=== PATIENT | female | born 1975 | race Caucasian/White ===

== ENCOUNTER 2017-08-20 18:56 | Emergency (ER) | payer OTHER ==
--- NOTE | 2017-08-20 19:06 | EDPHY ---
H & P Time Seen by Provider: 08/20/17 19:06 Constitutional: Initial Vital Signs Temperature (C) 36.8 C 08/20/17 19:20 Heart Rate 68 08/20/17 19:20 Respiratory Rate 15 08/20/17 19:20 Blood Pressure 113/77 08/20/17 19:20 O2 Sat (%) 98 08/20/17 19:20 O2 Delivery Mode Room Air Allergies/Adverse Reactions: No Known Allergies Allergy (Unverified 08/20/17 19:40) Home Medications: Medication Instructions Recorded AZITHROMYCIN [Z-PACK] 250 mg PO DAILY #1 packet 08/20/17 predniSONE 40 mg PO DAILY #4 tab 08/20/17 Medical Decision Making ED Course/Re-evaluation: CHIEF COMPLAINT: Persistent upper respiratory infection symptoms. HISTORY OF PRESENT ILLNESS: This patient is a 42 year old female complaining of upper respiratory infection symptoms remaining after 17 days of illness. She visited urgent care last Thursday and was diagnosed with viral syndrome. She had a sore throat and cough for the first two weeks which are now largely resolved. Today, she feels remaining malaise. Her throat feels tight intermittently and she continues to have rhinorrhea and fatigue. She feels pressure and paresthesias in her face. When she leans forward, she feels a pressure sensation under her eyes and above her teeth. She complains of persistent shortness of breath. 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 She denies any chest pain or abdominal pain. She did not receive a flu shot this year, and denies being tested for flu at her urgent care visit last weekend. She denies fever, vomiting, diarrhea, urinary complaints, or other associated symptoms. REVIEW OF SYSTEMS: A 10 point review of systems was performed and is negative with the exception of the elements mentioned in the history of present illness. PHYSICAL EXAM: HR, BP, O2 Sat, RR. Temp noted General Appearance: Alert, well hydrated, appropriate, and non-toxic appearing. Head: Atraumatic without scalp tenderness or obvious injury Eyes: Pupils equal, round, reactive to light and accommodation, EOMI, no trauma , no injection. Ears: Clear bilaterally, no perforation, normal landmarks Nose: Atraumatic, no rhinorrhea, clear. Throat: There is no erythema or exudates, no lesions, normal tonsils, mucus membranes moist. Neck: Supple, 2+ carotid upstroke, nontender, no lymphadenopathy. Respiratory: End-expiratory wheezes with prolonged expiratory period. No retractions, no distress, and no accessory muscle use. Cardiovascular: Regular rate and rhythm, no murmurs, rubs, or gallops. Bilateral carotid, radial, dorsalis pedis, and posterior tibial pulses intact. Good capillary refill all extremities. Gastrointestinal: Abdomen is soft, nontender, non-distended, no masses, no rebound, no guarding, no peritoneal signs. Musculoskeletal: Normal active ROM of all extremities, atraumatic. Neurological: Alert, appropriate, and interactive. The patient has normal DTRs and non-focal cranial nerves, motor, sensory, and cerebellar exam. Skin: No rashes, good turgor, no nodules on palpation. Past medical history: Denies Past surgical history: [place] teeth extraction Family history: Noncontributory. 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 . at bedside. Lives in [place]. DIFFERENTIAL DIAGNOSIS: The differential diagnosis for the patient's shortness of breath and hypoxemia included but was not limited to pneumonia, myocardial infarction, acute mountain sickness, high altitude pulmonary edema, congestive heart failure, and pulmonary embolus. MEDICAL DECISION MAKIN42 year old female presents with shortness of breath, fatigue, sore throat, and facial pressure persisting following an upper respiratory infection. Exam reveals end-expiratory wheezes with prolonged expiratory period. Bronchoconstriction suggests post-infectious reactive airways disease. Plan to administer DuoNeb treatment. 19:40 Reassessed patient. She continued to note a tight breathing sensation following DuoNeb administration. Expiratory wheezes noted on repeat exam. Plan to administer 40mg PO Prednisone. Plan to discharge home in good condition with prescription for Azithromycin to treat possible sinusitis, Prednisone and Proventil for relief of post- infections reactive airways disease symptoms. Follow up and return precautions discussed. The patient is comfortable with this plan. - Data Points Medications Given: Discontinued Medications Albuterol Sulfate (Proventil Inh Prepack) 1 mdi TAKEHOME EDNOW ONE Stop: 08/20/17 19:40 Last Admin: 08/20/17 19:58 Dose: 1 mdi Albuterol/Ipratropium (Duoneb) 3 ml IH EDNOW ONE Stop: 08/20/17 19:17 Last Admin: 08/20/17 19:19 Dose: 3 ml Azithromycin (Zithromax) 500 mg PO EDNOW ONE PRN Reason: Protocol Stop: 08/20/17 19:40 Last Admin: 08/20/17 19:46 Dose: 500 mg Prednisone (Prednisone) 40 mg PO EDNOW ONE Stop: 08/20/17 19:40 Last Admin: 08/20/17 19:46 Dose: 40 mg Departure - Departure Disposition: Home, Routine, Self-Care Clinical Impression: Mild reactive airways disease Qualifiers: Asthma persistence: unspecified Qualified Code(s): J45.909 - Unspecified asthma , uncomplicated Sinusitis Qualifiers: Sinusitis location: maxillary Chronicity: unspecified Qualified Code(s): J32.0 - Chronic maxillary sinusitis Condition: Good Instructions: Sinusitis (ED), Reactive Airways Disease (ED) Additional Instructions: 1. Take Flonase one puff each nostril twice daily and Mucinex 1200 morning and night, as directed on the packaging for symptom relief. These are available over the counter. 2. Take Azithromycin as prescribed. It is important to finish your entire course of antibiotics even if you are feeling better. Take Prednisone as prescribed. Use your inhaler as prescribed as needed. 3. Follow up with your primary care provider for further evaluation. 4. Return to the emergency department for worsening shortness of breath, chest pain, fever, or other worsening of condition. Referrals: Simón Rose MD [Medical Doctor] - As per Instructions Prescriptions: AZITHROMYCIN [Z-PACK] 250 mg PO DAILY #1 packet RX: predniSONE 40 mg PO DAILY #4 tab Report Scribed for: Gary Faust Report Scribed by: Lili Lao Date of Report: 08/20/17 Time of Report: 20:02
[2017-08-20] MEDS ORDERED: IPRATROPIUM/ALBUTEROL 3 ML DEYVIAL ONE (19:16)
[2017-08-20] MEDS ORDERED: IPRATROPIUM/ALBUTEROL 3 ML DEYVIAL IH ONE (19:16)
[2017-08-20 19:23] VITALS: TEMP 98.2
[2017-08-20] MEDS ORDERED: ALBUTEROL INH PREPACK MDI TAKEHOME ONE (19:39)
[2017-08-20] MEDS ORDERED: AZITHROMYCIN 250 MG TAB PO ONE (19:39)
[2017-08-20] MEDS ORDERED: predniSONE 20 MG TAB PO ONE (19:39)
[2017-08-20 20:00] VITALS: BP 123/72; PULSE 91; RESP 20; O2SAT 92
== END 2017-08-20 20:00 | disposition home or self-care (01) ==
DX: J45.909 Unspecified asthma, uncomplicated (principal); J32.0 Chronic maxillary sinusitis

== ENCOUNTER → 2017-12-01 | Outpatient (CLI) | payer OTHER | LOC: FIMAGING 13:23 | PROVIDERS: ATTEND Midwife | DX: N63.20 Unspecified lump in the left breast, unspecified quadrant (principal) ==